=== PATIENT | female | born 1975 | race Caucasian/White ===

== ENCOUNTER 2021-07-10 12:44 | Emergency (ER) | payer MEDICARE ==
[~2021-07-10] VITALS: Ht 170.2 cm; Wt 99.8 kg
[2021-07-10] MEDS ORDERED: CYCLOBENZAPRINE10 MG PO (13:04)
[2021-07-10] MEDS ORDERED: NEURONTIN300 MG PO (13:04)
[2021-07-10] MEDS ORDERED: HYDROCODON-ACE1 EA10 PO (16:43)
== END 2021-07-10 17:32 | disposition home or self-care (01) ==
LOC: ED 12:44
DX: S50.01XA Contusion of right elbow, initial encounter (principal); S40.021A Contusion of right upper arm, initial encounter; W01.10XA Fall on same level from slipping, tripping and stumbling with subsequent striking against unspecified object, initial encounter; Z88.0 Allergy status to penicillin; Z79.899 Other long term (current) drug therapy
CPT/HCPCS: 73030; 73060; 73080; 99283-25